=== PATIENT | male | born 1990 | race African-American/Black ===

== ENCOUNTER 2017-04-04 23:29 | Emergency (ER) | payer OTHER ==
[2017-04-05 00:15] VITALS: BP 119/64; PULSE 88; TEMP 98.4; BMI 23.4
[2017-04-05] MEDS ORDERED: PENICILLIN V POTASSIUM 500 MG TABLET PO ONE (00:49)
--- NOTE | 2017-04-05 00:52 | PDOC ---
History of Present Illness - General History Source: Patient <Yamil Churchill - Last Filed: 04/05/17 00:54> - General History Source: Patient Exam Limitations: No Limitations - History of Present Illness Initial Comments: 04/05/17 03:23 The patient is a 26 year old male with no significant past medical history, who presents to the ER with on and off sore throat for three days. Patient states his sore throat was worse this morning. He has had difficulty swallowing secondary to the sore throat. Patient says he noticed left jaw swelling as well as left tonsillar swelling. He also reports having associated productive coughing with green and brown phlegm. Patient reports seeing blood in his phlegm. Patient rates the sore throat at 4-5/10. He took two ibuprofen pills without relief. Patient says he has had similar symptoms last year for which he took Amoxicillin with complete relief of symptoms. Denies sinus issues Denies nausea, vomiting, diarrhea Denies surgical history Social Hx: 4-5 cigs/ day for 8 years and marijuana use daily <Queta Palacios - Last Filed: 04/05/17 03:33> - General Chief Complaint: Sore Throat Stated Complaint: COLD SYMPTOMS Time Seen by Provider: 04/05/17 00:48 Past History - Immunization History Immunization Up to Date: Yes - Psycho/Social/Smoking Cessation Hx Suicidal Ideation: No Smoking History: Current some day smoker Have you smoked in the past 12 months: No Number of Cigarettes Smoked Daily: 2 Information on smoking cessation initiated: No Hx Alcohol Use: No Drug/Substance Use Hx: No Substance Use Type: None <Charlette Churchillan - Last Filed: 04/05/17 00:54> <Queta Palacios - Last Filed: 04/05/17 03:33> - Past Medical History Allergies/Adverse Reactions: Allergies Allergy/AdvReac Type Severity Reaction Status Date / Time No Known Allergies Allergy Verified 04/05/17 00:08 Home Medications: Ambulatory Orders Ibuprofen 800 mg PO TID #30 tablet 04/05/17 Penicillin V Potassium [Pen Vee K -] 500 mg PO TID #30 tablet 04/05/17 Review of Systems - Review of Systems Comments:: 04/05/17 03:23 CONSTITUTIONAL: Absent: fever, no chills, no fatigue EYES: Absent: visual changes ENT: Present: (+) sore throat, jaw swelling, tonsillar swelling Absent: ear pain CARDIOVASCULAR: Absent: chest pain, no palpitations RESPIRATORY: Present: (+) productive cough, hemoptysis Absent: no SOB GI: Absent: abdominal pain, no nausea, no vomiting, no constipation, no diarrhea GENITOURINARY: Absent: dysuria, no frequency, no hematuria MUSCULOSKELETAL: Absent: back pain, no arthralgia, no myalgia SKIN: Absent: rash NEURO: Absent: headache <Uts,Queta - Last Filed: 04/05/17 03:33> *Physical Exam - Vital Signs Last Vital Signs Temp Pulse Resp BP Pulse Ox 98.4 F 88 20 119/64 97 04/05/17 00:08 04/05/17 00:08 04/05/17 00:08 04/05/17 00:08 04/05/17 00:08 <Yamil Churchill - Last Filed: 04/05/17 00:54> - Vital Signs Last Vital Signs Temp Pulse Resp BP Pulse Ox 98.4 F 88 20 119/64 97 04/05/17 00:08 04/05/17 00:08 04/05/17 00:08 04/05/17 00:08 04/05/17 00:08 - Physical Exam Comments: 04/05/17 03:25 GENERAL: Well-appearing, well-nourished. No apparent distress. HEENT: Mild erythema of oropharynx without exudates. No postnasal drip. Normocephalic , atraumatic. PERRL, EOM intact. CARDIOVASCULAR: Normal S1, S2. Regular rate and rhythm. PULMONARY: Clear to auscultation bilaterally. ABDOMEN: Soft, non-distended, non-tender. EXTREMITIES: Normal ROM in all four extremities. No gross deformities. SKIN: Warm, dry. No rash NEUROLOGICAL: No focal neurological deficits. <Uts,Queta - Last Filed: 04/05/17 03:33> ED Treatment Course - Medications Given in the ED: ED Medications Discontinued Medications Generic Name Dose Route Start Last Admin Trade Name Freq PRN Reason Stop Dose Admin Penicillin V Potassium 500 mg 04/05/17 00:49 04/05/17 01:00 Pen Vee K - PO 04/05/17 00:50 500 mg ONCE ONE Administration <Uts,Queta - Last Filed: 04/05/17 03:33> Medical Decision Making - Medical Decision Making 04/05/17 00:52 Dr. Churchill: The scribe's documentation has been prepared under my direction and personally reviewed by me in its entirery. I confirm that the note above accurately reflects all work, treatment, procedures, and medical decision making performed by me. <Yamil Churchill - Last Filed: 04/05/17 00:54> *DC/Admit/Observation/Transfer - Discharge Dispostion Admit: No <Yamil Churchill - Last Filed: 04/05/17 00:54> <Queta Palacios - Last Filed: 04/05/17 03:33> Diagnosis at time of Disposition: Pharyngitis - Discharge Dispostion Disposition: HOME Condition at time of disposition: Stable - Prescriptions Prescriptions: Ibuprofen 800 mg PO TID #30 tablet Penicillin V Potassium [Pen Vee K -] 500 mg PO TID #30 tablet - Referrals Referrals: Santiago Pierce MD [Primary Care Provider] - - Patient Instructions Printed Discharge Instructions: DI for Pharyngitis/Tonsillopharyngitis -- Adult - Post Discharge Activity Work/School Note: Back to Work
[2017-04-05] MEDS ORDERED: IBUPROFEN 400 MG TABLET (FP) PO ONE (00:57)
== END 2017-04-05 01:05 | disposition home or self-care (01) ==
LOC: JER 23:29
DX: J02.9 Acute pharyngitis, unspecified (principal)
CPT/HCPCS: 99282-25

== ENCOUNTER 2017-09-01 21:39 | Emergency (ER) | payer OTHER ==
[2017-09-01 21:52] VITALS: BP 142/83; PULSE 82; TEMP 100.2; BMI 22.1
--- NOTE | 2017-09-01 22:20 | PDOC ---
History of Present Illness - General Chief Complaint: Sore Throat Stated Complaint: SORE THROAT Time Seen by Provider: 09/01/17 21:55 History Source: Patient Exam Limitations: No Limitations - History of Present Illness Initial Comments: 09/01/17 22:19 Patient is a 27-year-old male with history of pharyngitis presents emergency Department with right-sided throat pain. Patient states he was seen in urgent care started on amoxicillin 875 mg by mouth twice a day did not take dose today because he was unsure of the interventions that would been performed in the emergency department today. Patient with normal voice, pain to right side of throat with no facial edema or neck edema, no palpable lymph node, no fever. Patient able to swallow. Patient reports given a shot in urgent care 2 days ago which decreased inflammation to throat. Past Medical History: Denies. Allergies: No known allergies Medications: Currently on amoxicillin Family History: Non-contributory Social History: Admits to smoking and smoking marijuana, no alcohol use Review of Systems GENERAL/CONSTITUTIONAL: No fever or chills. No weakness. No weight change. HEAD, EYES, EARS, NOSE AND THROAT: No change in vision. No ear pain or discharge. No sore throat. Right-sided throat pain. CARDIOVASCULAR: No chest pain or shortness of breath. RESPIRATORY: No cough, wheezing, or hemoptysis. GASTROINTESTINAL: No nausea, vomiting, diarrhea or constipation. No rectal bleeding. GENITOURINARY: No dysuria, frequency, or change in urination. MUSCULOSKELETAL: No joint or muscle swelling or pain. No neck or back pain. SKIN : No rash or easy bruising. NEUROLOGIC: No headache, vertigo, loss of consciousness, or loss of sensation. PSYCHIATRIC: No depression or anxiety. ENDOCRINE: No increased thirst. No abnormal weight change. HEMATOLOGIC/LYMPHATIC: No anemia, easy bleeding, or history of blood clots. ALLERGIC/IMMUNOLOGIC: No hives or skin allergy. No latex allergy. Physical Exam: GENERAL: The patient is awake, alert, and fully oriented, in no acute distress. EYES: Pupils equal, round and reactive to light, extraocular movements intact, sclera anicteric, conjunctiva clear. ENT: Ears normal, nares patent, oropharynx erythematous. Moist mucous membranes. There is a deviation of the uvula to the right with exudate to right tonsil NECK: Normal range of motion, supple without lymphadenopathy, JVD, or masses. LUNGS: Breath sounds equal, clear to auscultation bilaterally. No wheezes, and no crackles. HEART: Regular rate and rhythm, normal S1 and S2 without murmur, rub or gallop. ABDOMEN: Soft, nontender, normoactive bowel sounds. No guarding, no rebound. No masses. No bruising or abrasions RECTAL : Guaiac negative, normal rectal tone. MUSCULOSKELETAL: Normal range of motion, no edema. No clubbing or cyanosis. No cords, erythema, or tenderness. No CVA Tenderness with fist. NEUROLOGICAL: Cranial nerves II through XII grossly intact. Normal speech, normal gait. SKIN: Warm, Dry, normal turgor, no rashes or lesions noted. 1 Past History - Past Medical History Allergies/Adverse Reactions: Allergies Allergy/AdvReac Type Severity Reaction Status Date / Time No Known Allergies Allergy Verified 09/02/17 13:14 Home Medications: Ambulatory Orders Clindamycin [Cleocin -] 300 mg PO Q6HPO #28 capsule 09/02/17 - Immunization History Immunization Up to Date: Yes - Suicide/Smoking/Psychosocial Hx Smoking History: Current every day smoker Have you smoked in the past 12 months: Yes Number of Cigarettes Smoked Daily: 6 Information on smoking cessation initiated: No Hx Alcohol Use: No Drug/Substance Use Hx: Yes (marijuana) Substance Use Type: None *Physical Exam - Vital Signs Last Vital Signs Temp Pulse Resp BP Pulse Ox 100.2 F H 82 18 142/83 100 09/01/17 21:47 09/01/17 21:47 09/01/17 21:47 09/01/17 21:47 09/01/17 21:47 ED Treatment Course - RADIOLOGY Radiology Studies Ordered: Category Date Time Status SOFT TISSUE NECK CT W/O CONTR [CT] Stat CT Scan 09/01/17 22:10 Ordered Medical Decision Making - Medical Decision Making 09/01/17 22:53 A/P: Patient here for evaluation of right-sided throat pain with exudate on right tonsil, mild uvula deviation. Requested for Dr. Reaves to come and evaluate patient she agrees with my assessment to perform a CT of soft neck to rule out abscess. Awaiting CT. I am signing this patient out to my colleague: Dr. Reaves In brief, this patient is being seen in the ED for a chief complaint of: Right- sided throat pain I have completed the initial assessment interview note and have ordered: CT of neck soft tissue Pending results are: CT is still pending to be performed Plan for disposition is as follows: Pending *DC/Admit/Observation/Transfer Diagnosis at time of Disposition: Peritonsillar abscess - Discharge Dispostion Disposition: HOME Condition at time of disposition: Stable - Referrals Referrals: Santiago Pierce MD [Primary Care Provider] - Rasheed Ortiz MD [Staff Physician] - - Patient Instructions Printed Discharge Instructions: DI for Peritonsillar Abscess -- Child Additional Instructions: please follow up with ENT specialist, Dr Rasheed Ortiz and also Dr Pierce You must complete ALL your antibiotics - Post Discharge Activity
--- NOTE | 2017-09-02 02:03 | PDOC ---
*Physical Exam - Vital Signs Last Vital Signs Temp Pulse Resp BP Pulse Ox 100.2 F H 82 18 142/83 100 09/01/17 21:47 09/01/17 21:47 09/01/17 21:47 09/01/17 21:47 09/01/17 21:47 Medical Decision Making - Medical Decision Making 09/02/17 01:59 27 yo male who was just started on antibiotics presents because he still had throat pain ct scan was ordered and it was read as enlarged right palatine tonsil , there is a 1.3 cm x 7.3 mm low density focus in rt tonsil which could represent phlegmon or early abscess -the epiglottis is normal -cervical airway remains patent -parotid and submandibular glands are normal *DC/Admit/Observation/Transfer Diagnosis at time of Disposition: Peritonsillar abscess - Discharge Dispostion Disposition: HOME Condition at time of disposition: Stable - Referrals Referrals: Santiago Pierce MD [Primary Care Provider] - Rasheed Ortiz MD [Staff Physician] - - Patient Instructions Printed Discharge Instructions: DI for Peritonsillar Abscess -- Child Additional Instructions: please follow up with ENT specialist, Dr Rasheed Ortiz and also Dr Pierce You must complete ALL your antibiotics - Post Discharge Activity
== END 2017-09-02 02:13 | disposition home or self-care (01) ==
LOC: JERFT 21:39 → JER 21:39
DX: J36 Peritonsillar abscess (principal)
CPT/HCPCS: 70490-TC; 99281-25

== ENCOUNTER 2017-09-02 13:02 | Emergency (ER) | payer OTHER ==
[2017-09-02 13:14] VITALS: BP 135/78; PULSE 78; TEMP 98.8; BMI 22.1
--- NOTE | 2017-09-02 14:04 | PDOC ---
History of Present Illness - General Chief Complaint: Rash Stated Complaint: ALLERGIC REACTION Time Seen by Provider: 09/02/17 13:38 - History of Present Illness Initial Comments: 09/02/17 14:07 27 year old male seen in ED yesterday for early peritonsilar abscess? patient currently on amoxicillin. today noted to have hives to body with itchining. denies respiratory symptoms, drooling, Past History - Past Medical History Allergies/Adverse Reactions: Allergies Allergy/AdvReac Type Severity Reaction Status Date / Time No Known Allergies Allergy Verified 09/02/17 13:14 Home Medications: Ambulatory Orders Clindamycin [Cleocin -] 300 mg PO Q6HPO #28 capsule 09/02/17 Other medical history: PATIENT DENIES MEDICAL HX - Immunization History Immunization Up to Date: Yes - Suicide/Smoking/Psychosocial Hx Smoking History: Current every day smoker Have you smoked in the past 12 months: Yes Number of Cigarettes Smoked Daily: 7 Information on smoking cessation initiated: No Hx Alcohol Use: No Drug/Substance Use Hx: Yes Substance Use Type: Marijuana *Physical Exam - Vital Signs Last Vital Signs Temp Pulse Resp BP Pulse Ox 98.8 F 78 16 135/78 100 09/02/17 13:11 09/02/17 13:11 09/02/17 13:11 09/02/17 13:11 09/02/17 13:11 - Physical Exam General Appearance: Yes: Appropriately Dressed HEENT: positive: Pharyngeal Erythema, Tonsillar Exudate (right tonsillar exudate ), Other (b/l pharyngeal erythema with blister over right tonsil. no unequal swelling noted. uvula midline. normal voice. ) Neck: positive: Normal Thyroid Respiratory/Chest: positive: Lungs Clear, Normal Breath Sounds Cardiovascular: positive: Regular Rhythm, Regular Rate Gastrointestinal/Abdominal: positive: Normal Bowel Sounds, Soft Extremity: positive: Normal Capillary Refill, Normal Inspection, Normal Range of Motion Integumentary: positive: Normal Color, Dry, Warm Neurologic: positive: Fully Oriented, Alert, Normal Mood/Affect Progress Note - Progress Note Progress Note: A: allergic reaction P: benadryl prednisone. as per plan ENT follow up. will d/c amoxicillin will switch to clindamycin *DC/Admit/Observation/Transfer Diagnosis at time of Disposition: Allergic reaction caused by a drug Qualifiers: Encounter type: initial encounter Qualified Code(s): T78.40XA - Allergy, unspecified, initial encounter - Discharge Dispostion Disposition: HOME - Prescriptions Prescriptions: Clindamycin [Cleocin -] 300 mg PO Q6HPO #28 capsule - Referrals Referrals: Santiago Pierce MD [Primary Care Provider] - Call tomorrow Rasheed Ortiz MD [Staff Physician] - - Patient Instructions Printed Discharge Instructions: DI for Adverse Drug Reaction -- Allergic Additional Instructions: stop amoxicillin start clindamycin as prescribed. follow up with the ENT doctor as previously planned.
[2017-09-02] MEDS ORDERED: diphenhydrAMINE HCL 50 MG CAPSULE PO ONE (14:06)
[2017-09-02] MEDS ORDERED: predniSONE 20 MG TABLET (UD) PO ONE (14:06)
[2017-09-02] MEDS ORDERED: diphenhydrAMINE HCL 25 MG CAPSULE (FP) PO ONE ×2 (14:10→14:12)
[2017-09-02] MEDS ORDERED: predniSONE 20 MG TABLET (UD) ONE (14:10)
== END 2017-09-02 14:34 | disposition home or self-care (01) ==
LOC: JERFT 13:02
DX: L50.0 Allergic urticaria (principal); T36.0X5A Adverse effect of penicillins, initial encounter; Y92.038 Other place in apartment as the place of occurrence of the external cause
CPT/HCPCS: 99281-25

== ENCOUNTER 2017-09-12 12:46 | Emergency (ER) | payer OTHER ==
[2017-09-12 13:06] VITALS: BP 114/65; PULSE 86; TEMP 98.4; BMI 22.1
--- NOTE | 2017-09-12 14:24 | PDOC ---
History of Present Illness - General Chief Complaint: Pain Stated Complaint: PAIN/ BACK, ABD Time Seen by Provider: 09/12/17 13:36 History Source: Patient Exam Limitations: No Limitations - History of Present Illness Initial Comments: 09/12/17 14:23 Patient is a 27-year-old male, currently being treated for throat infection, had an allergic reaction to amoxicillin, currently now taking clindamycin. Presents today with urinary frequency, urgency and two episodes of nocturnal enuresis. Patient is uncircumcised. Patient also with bilateral lower back pain. Had LLQ pain which is intermittent none noted upon arrival. Denies any new recent sexual activity, no nausea vomiting or diarrhea. Denies any fever, denies any trauma. Allergies: No known allergies Medications: None Family History: Non-contributory Social History: Denies smoking, alcohol use, or IVDU Review of Systems GENERAL/CONSTITUTIONAL: No fever or chills. No weakness. No weight change. HEAD, EYES, EARS, NOSE AND THROAT: No change in vision. No ear pain or discharge. No sore throat. CARDIOVASCULAR: No chest pain or shortness of breath. RESPIRATORY: No cough, wheezing, or hemoptysis. GASTROINTESTINAL: No nausea, vomiting, diarrhea or constipation. No rectal bleeding. GENITOURINARY: Urinary frequency, urgency, nocturnal uresis. MUSCULOSKELETAL: No joint or muscle swelling or pain. No neck pain. Generalized lower back pain. SKIN: No rash or easy bruising. NEUROLOGIC: No headache, vertigo, loss of consciousness, or loss of sensation. ENDOCRINE: No increased thirst. No abnormal weight change. HEMATOLOGIC/LYMPHATIC: No anemia, easy bleeding, or history of blood clots. ALLERGIC/IMMUNOLOGIC: No hives or skin allergy. No latex allergy. Physical Exam: GENERAL: The patient is awake, alert, and fully oriented, in no acute distress. EYES: Pupils equal, round and reactive to light, extraocular movements intact, sclera anicteric, conjunctiva clear. ENT: Ears normal, nares patent, oropharynx clear without exudates. Moist mucous membranes. No uvula deviation NECK: Normal range of motion, supple without lymphadenopathy, JVD, or masses. LUNGS: Breath sounds equal, clear to auscultation bilaterally. No wheezes, and no crackles. HEART: Regular rate and rhythm, normal S1 and S2 without murmur, rub or gallop. ABDOMEN: Soft, nontender, normoactive bowel sounds. No guarding, no rebound. No masses. No bruising or abrasions RECTAL : Guaiac negative, normal rectal tone. MUSCULOSKELETAL: Normal range of motion, no edema. No clubbing or cyanosis. No cords, erythema, or tenderness. No CVA Tenderness with fist palpation. Pain to generalized lower back, musculature. NEUROLOGICAL: Cranial nerves II through XII grossly intact. Normal speech, normal gait. PSYCH: Normal mood, normal affect. SKIN: Warm, Dry, normal turgor, no rashes or lesions noted. Past History - Past Medical History Allergies/Adverse Reactions: Allergies Allergy/AdvReac Type Severity Reaction Status Date / Time amoxicillin Allergy Severe Hives Verified 09/12/17 13:02 Home Medications: Ambulatory Orders Clindamycin [Cleocin -] 300 mg PO Q6HPO #28 capsule 09/02/17 - Immunization History Immunization Up to Date: Yes - Suicide/Smoking/Psychosocial Hx Smoking History: Current every day smoker Have you smoked in the past 12 months: Yes Number of Cigarettes Smoked Daily: 6 Information on smoking cessation initiated: No Hx Alcohol Use: No Drug/Substance Use Hx: No Substance Use Type: Marijuana *Physical Exam - Vital Signs Last Vital Signs Temp Pulse Resp BP Pulse Ox 98.4 F 86 20 114/65 100 09/12/17 12:50 09/12/17 12:50 09/12/17 12:50 09/12/17 12:50 09/12/17 12:50 ED Treatment Course - LABORATORY CBC & Chemistry Diagram: 09/12/17 14:55 09/12/17 14:55 Medical Decision Making - Medical Decision Making 09/12/17 14:52 A/P: Patient here for evaluation of generalized lower back pain and 2 episodes of nocturnal enuresis, patient reports that he has been very tired recently since been on antibiotics for throat infection, and thought he may not have been able to get up quick enough to go to the bathroom. Patient states he has been in bed for prolonged times because he has not been feeling well. Plan: Urinalysis, urine culture Laboratory Results - last 24 hr 09/12/17 14:15 Urine Color Lt. yellow Urine Appearance Clear Urine pH 6.0 Urine Protein Negative Urine Glucose (UA) Negative Urine Ketones Trace H Urine Blood Negative Urine Nitrite Negative Urine Bilirubin Negative Urine Urobilinogen 1.0 Patient with positive ketones, dry oral mucosa. CBC, CMP sent. 09/12/17 15:56 Laboratory Results - last 24 hr 09/12/17 09/12/17 09/12/17 14:15 14:55 14:55 WBC 6.5 RBC 4.59 Hgb 13.2 Hct 39.4 MCV 86.0 MCH 28.7 MCHC 33.4 RDW 12.8 Plt Count 506 H MPV 6.6 L Neutrophils % 59.7 Lymphocytes % 30.5 Monocytes % 7.7 Eosinophils % 1.3 Basophils % 0.8 Sodium 139 Potassium 4.3 Chloride 101 Carbon Dioxide 30 Anion Gap 8 BUN 14 Creatinine 0.9 Creat Clearance w eGFR > 60 Random Glucose 83 Calcium 9.3 Total Bilirubin 0.3 AST 9 L ALT 17 Alkaline Phosphatase 54 Total Protein 7.9 Albumin 4.2 Lipase Urine Color Lt. yellow Urine Appearance Clear Urine pH 6.0 Urine Protein Negative Urine Glucose (UA) Negative Urine Ketones Trace H Urine Blood Negative Urine Nitrite Negative Urine Bilirubin Negative Urine Urobilinogen 1.0 09/12/17 14:55 WBC RBC Hgb Hct MCV MCH MCHC RDW Plt Count MPV Neutrophils % Lymphocytes % Monocytes % Eosinophils % Basophils % Sodium Potassium Chloride Carbon Dioxide Anion Gap BUN Creatinine Creat Clearance w eGFR Random Glucose Calcium Total Bilirubin AST ALT Alkaline Phosphatase Total Protein Albumin Lipase 113 Urine Color Urine Appearance Urine pH Urine Protein Urine Glucose (UA) Urine Ketones Urine Blood Urine Nitrite Urine Bilirubin Urine Urobilinogen CBC reveals no anemia, leukocytosis, bandemia, lymphocytosis, or neutrophilia. Platelets are elevated. CMP reveals no electrolyte imbalance, there is no transaminitis, renal function is normal, there is no hyperbilirubinemia. Urinalysis reveals no urinary tract infection but there are ketones in the urine him encourage patient to increase fluid intake. Patient with no neurological deficits, back pain is resolved after Toradol. We'll DC patient home, to follow-up with urology if symptoms persist. Any pain, increased incontinence, or any other concerns return to ER patient denies any issues with incontinence when awake. I discussed the physical exam findings, ancillary test results and final diagnoses with the patient. I answered all of the patient's questions. The patient was satisfied with the care received and felt comfortable with the discharge plan and treatment plan. The patient will call to arrange follow-up and will return to the Emergency Department with any new, persistent or worsening symptoms. 09/12/17 16:02 09/12/17 16:03 *DC/Admit/Observation/Transfer Diagnosis at time of Disposition: Nocturnal and diurnal enuresis Back pain Qualifiers: Back pain location: low back pain Chronicity: acute Back pain laterality: bilateral Sciatica presence: without sciatica Qualified Code(s): M54.5 - Low back pain; M54.5 - Low back pain - Discharge Dispostion Disposition: HOME Condition at time of disposition: Good Admit: No - Referrals Referrals: Santiago Pierce MD [Primary Care Provider] - Leo Canela MD [Staff Physician] - - Patient Instructions Additional Instructions: Recommend follow-up with urology as soon as possible, if any neurological symptoms including numbness or tingling of legs, inability to ambulate, fever, or any other concerns return immediately to ER - Post Discharge Activity Forms/Work/School Notes: Back to Work
[2017-09-12 14:26] LABS: URINE APPEARANCE CLEAR; URINE BILIRUBIN NEGATIVE (NEGATIVE); URINE BLOOD NEGATIVE (NEGATIVE); URINE COLOR LT. YELLOW; URINE GLUCOSE (UA) NEGATIVE (NEGATIVE); URINE KETONE TRACE (NEGATIVE); URINE NITRITE NEGATIVE (NEGATIVE); URINE PROTEIN NEGATIVE (NEGATIVE)
[2017-09-12] MEDS ORDERED: KETOROLAC TROMETHAMINE 60 MG/2 ML VIAL IM ONE (14:49)
[2017-09-12] MEDS ORDERED: KETOROLAC TROMETHAMINE 60 MG/2 ML VIAL ONE (14:52)
[2017-09-12 15:18] LABS: BASOPHIL 0.8 % (0-2.0); EOSINOPHIL 1.3 % (0-4.5); MCH 28.7 pg (25.7-33.7); MCHC 33.4 g/dl (32.0-35.9); MEAN PLT VOLUME 6.6 fl (7.5-11.1); NEUTROPHILS 59.7 % (42.8-82.8); PLATELET COUNT 506 K/MM3 (134-434); RDW 12.8 % (11.9-15.9); WHITE BLOOD COUNT 6.5 K/mm3 (4.0-10.0)
[2017-09-12 15:23] LABS: ALBUMIN 4.2 g/dl (3.4-5.0); ALK PHOS 54 U/L (45-117); ANION GAP 8 (8-16); BILIRUBIN,TOTAL 0.3 mg/dL (0.2-1.0); CALCIUM 9.3 mg/dL (8.5-10.1); CO2 30 mmol/L (21-32); CREATININE 0.9 mg/dL (0.7-1.3); GLUCOSE,RANDOM 83 mg/dL (74-106); SGOT/AST 9 U/L (15-37); SGPT/ALT 17 U/L (12-78); TOT PROT 7.9 g/dl (6.4-8.2)
[2017-09-12 18:43] LABS: URINE LEUK ESTERASE Negative (NEGATIVE)
== END 2017-09-12 16:06 | disposition home or self-care (01) ==
LOC: JERFT 12:46
PROC: 3E0233Z Introduction of Anti-inflammatory into Muscle, Percutaneous Approach (ICD-10-PCS; principal; 2017-09-12)
DX: M54.5 Low back pain (principal); N39.44 Nocturnal enuresis
CPT/HCPCS: 36415; 80053; 81003; 83690; 85025; 87086; 87491; 87591; 99281-25